=== PATIENT | male | born 1960 | race African-American/Black ===

== ENCOUNTER 2017-08-22 11:45 | Inpatient (IN) | payer SELFPAY ==
[~2017-08-22] VITALS: Ht 175.3 cm; Wt 66.7 kg
[2017-08-22] VITALS (15 sets, daily range): BP systolic 101–147; BP diastolic 66–95
[2017-08-22] MEDS ORDERED: SODIUM CHLORIDE 0.9% 1,000 ML IV ONE ×2 (12:01→13:19)
[2017-08-22 12:44] LABS: BG BASE EXCESS -4.5 mmol/L (-2.0-2.0); BG CARBOXYHEMOGLOBIN 0.6 % (0.5-1.5); BG DEOXYHEMOGLOBIN 3.8 % (0.0-5.0); BG HCO3 ACT 21.8 mmol/L (22.0-26.0); BG METHEMOGLOBIN 0.4 % (0.0-1.5); BG OXYGEN SATURATION 96.2 % (92.0-98.5); BG OXYHEMOGLOBIN 95.2 % (94.0-97.0); BG PCO2 44.3 mmHg (35.0-45.0); BG PH 7.309 (7.350-7.450); BG PO2 93.2 mmHg (75.0-100.0); BG SAMPLE SITE RIGHT BRACHIAL; BG TOTAL HEMOGLOBIN 15.2 g/dL (12.0-18.0); BG VENT MODE ROOM AIR
[2017-08-22 13:00] LABS: BASOPHILS % 0.3 % (0.0-2.0); HEMATOCRIT. 50.2 % (42.0-52.0); HEMOGLOBIN. 15.3 g/dL (14.0-18.0); LYMPHOCYTES % 11.2 % (20.0-50.0); MEAN CORPUSCULAR HEMOGLOBIN 29.3 pg (28.0-32.0); MEAN CORPUSCULAR VOLUME 96.1 fL (80.0-94.0); MEAN PLATELET VOLUME 11.2 fl (7.4-10.4); MONOCYTES % 11.2 % (2.0-8.0); NEUTROPHILS % 77.3 % (40.0-76.0); PLATELET 217 x1000/uL (130-400); RED BLOOD CELL COUNT 5.23 mill/uL (4.7-6.1); RED CELL DISTRIBUTION WIDTH 13.9 % (11.6-14.6)
[2017-08-22 13:04] LABS: PROTHROMBIN TIME 10.7 sec (9.4-11.6)
[2017-08-22 13:14] LABS: CARBON DIOXIDE 26 mEq/L (21-32); CHLORIDE 99 mEq/L (98-107); ETHANOL BLOOD < 10 mg/dL; TROPONIN I 0.06 ng/mL (0.00-0.04)
[2017-08-22 13:17] LABS: BETA HYDROXYBUTYRATE 9.3 mMol/L (0.0-0.3)
[2017-08-22] MEDS ORDERED: INSULIN REGULAR (DRIP) 100 UNITS in SODIUM CHLORIDE 0.9% 99 ML IV SCH (13:30)
[2017-08-22] MEDS ORDERED: SODIUM CHLORIDE 0.9% 1,000 ML IV SCH (13:39)
[2017-08-22] MEDS: SODIUM CHLORIDE 0.45% 1,000 ML IV SCH ×2 (17:22→20:59)
[2017-08-22] MEDS ORDERED: DEXTROSE 50% WATER 50ML SYRINGE IV PRN ×4 (18:00→18:15)
[2017-08-22] MEDS ORDERED: BLOOD SUGAR DIAGNOSTIC STRIP TEST SCH (18:00)
[2017-08-22] MEDS ORDERED: HYDROCODONE/ACETAMINOPHEN 5/325MG TABLET PO PRN (18:15)
[2017-08-22] MEDS ORDERED: ONDANSETRON HCL 4MG/2ML VIAL IV PRN (18:15)
[2017-08-22] MEDS ORDERED: ACETAMINOPHEN 650MG/20.3ML UDC GT PRN (18:15)
[2017-08-22] MEDS ORDERED: ACETAMINOPHEN 325MG TABLET PO PRN (18:15)
[2017-08-22] MEDS ORDERED: MAGNESIUM/ALUMINUM HYDROXIDE/SIMETHICONE 30ML UDC PO PRN (18:15)
[2017-08-22] MEDS ORDERED: IPRATROPIUM/ALBUTEROL 0.5-3(2.5)MG/3ML NEB INH PRN (18:15)
[2017-08-22] MEDS ORDERED: CLONIDINE 0.1MG TABLET PO PRN (18:15)
[2017-08-22] MEDS ORDERED: ACETAMINOPHEN 650MG SUPP PR PRN (18:15)
[2017-08-22] MEDS ORDERED: GUAIFENESIN 200MG/10ML SUGAR FREE UDC PO PRN (18:15)
[2017-08-22] MEDS: BLOOD SUGAR DIAGNOSTIC STRIP TEST SCH ×6 (19:00→22:58)
[2017-08-22 19:17] LABS: CLARITY URINE CLEAR (CLEAR); COLOR URINE YELLOW (YELLOW); KETONES URINE 1+ (NEGATIVE); LEUKOCYTE ESTERASE URINE NEGATIVE (NEGATIVE); NITRITE URINE NEGATIVE (NEGATIVE); OCCULT BLOOD URINE TRACE (NEGATIVE); PROTEIN URINE TRACE (NEGATIVE); SPECIFIC GRAVITY URINE 1.028 (1.005-1.030); UROBILINOGEN URINE 0.2 E.U./dL (0.2-1.0)
[2017-08-22 19:26] LABS: *AMPHETAMINES SCREEN URINE NEGATIVE (NEGATIVE); *BARBITURATES SCREEN URINE NEGATIVE (NEGATIVE); *BENZODIAZEPINES SCREEN URINE NEGATIVE (NEGATIVE); *COCAINE SCREEN URINE NEGATIVE (NEGATIVE); CANNABINOID URINE SCREEN NEGATIVE (NEGATIVE); METHADONE URINE SCREEN NEGATIVE (NEGATIVE); OPIATES URINE SCREEN NEGATIVE (NEGATIVE); PHENCYCLIDINE URINE SCREEN NEGATIVE (NEGATIVE)
[2017-08-22] MEDS: ENOXAPARIN 30MG/0.3ML SYR SUBCUT SCH (19:37)
[2017-08-22] MEDS: INSULIN REGULAR (DRIP) 100 UNITS in SODIUM CHLORIDE 0.9% 100 ML IV SCH (21:15)
[2017-08-22] MEDS: SODIUM CHLORIDE 0.9% INJ 3ML FLUSH IVF SCH (21:23)
[2017-08-22 22:10] LABS: TROPONIN I 0.07 ng/mL (0.00-0.04)
[2017-08-22 22:11] LABS: CREATINE KINASE MB FRACTION 0.8 ng/mL (0.5-3.6)
[2017-08-23] VITALS (24 sets, daily range): BP systolic 89–139; BP diastolic 64–89
[2017-08-23] MEDS: BLOOD SUGAR DIAGNOSTIC STRIP TEST SCH ×24 (00:20→23:19)
[2017-08-23] MEDS: INSULIN REGULAR (DRIP) 100 UNITS in SODIUM CHLORIDE 0.9% 100 ML IV SCH ×3 (01:11→19:40)
[2017-08-23] MEDS: SODIUM CHLORIDE 0.45% 1,000 ML IV SCH (04:04)
[2017-08-23] MEDS: SODIUM CHLORIDE 0.9% INJ 3ML FLUSH IVF SCH ×3 (05:07→21:10)
[2017-08-23 05:20] LABS: BASOPHILS % 0.2 % (0.0-2.0); HEMATOCRIT. 46.6 % (42.0-52.0); MEAN CORPUSCULAR VOLUME 89.8 fL (80.0-94.0); MEAN PLATELET VOLUME 10.4 fl (7.4-10.4); MONOCYTES % 12.9 % (2.0-8.0); NEUTROPHILS % 71.9 % (40.0-76.0); PLATELET 217 x1000/uL (130-400); RED BLOOD CELL COUNT 5.18 mill/uL (4.7-6.1); RED CELL DISTRIBUTION WIDTH 13.3 % (11.6-14.6)
[2017-08-23 05:45] LABS: CARBON DIOXIDE 37 mEq/L (21-32); CHLORIDE 118 mEq/L (98-107); CREATINE KINASE 201 IU/L (39-308); CREATINE KINASE MB FRACTION 0.7 ng/mL (0.5-3.6); PHOSPHORUS 1.7 mg/dL (2.5-4.9); TROPONIN I 0.07 ng/mL (0.00-0.04)
[2017-08-23] MEDS ORDERED: DEXT 5%/0.45% NACL 1000ML 1,000 ML IV SCH (06:30)
[2017-08-23] MEDS: DEXT 5%/0.2% NACL 1,000 ML IV SCH ×3 (10:23→21:09)
[2017-08-23] MEDS ORDERED: POTASSIUM CHLORIDE INJ 40 MEQ in DEXT 5% WATER 500 ML IV NR (11:30)
[2017-08-23] MEDS: TAMSULOSIN HCL 0.4MG SR CAPSULE PO SCH (15:37)
[2017-08-23] MEDS: DOCUSATE SODIUM 100MG CAPSULE PO PRN (15:38)
[2017-08-23] MEDS: ENOXAPARIN 30MG/0.3ML SYR SUBCUT SCH (18:28)
[2017-08-23] MEDS ORDERED: POTASSIUM CHLORIDE 20MEQ TABLET SR PO NR (18:30)
[2017-08-23] MEDS ORDERED: POTASSIUM CHLORIDE INJ 40 MEQ in DEXT 5% WATER 250 ML IV NR (20:00)
[2017-08-24] VITALS (26 sets, daily range): BP systolic 88–151; BP diastolic 67–101
[2017-08-24] MEDS: BLOOD SUGAR DIAGNOSTIC STRIP TEST SCH ×15 (00:15→21:36)
[2017-08-24] MEDS ORDERED: LIDOCAINE HCL/PF 1% 2ML VIAL ONE (05:00)
[2017-08-24] MEDS: SODIUM CHLORIDE 0.9% INJ 3ML FLUSH IVF SCH ×3 (05:25→21:37)
[2017-08-24] MEDS: DEXT 5%/0.2% NACL 1,000 ML IV SCH (05:25)
[2017-08-24 05:29] LABS: BASOPHILS % 0.2 % (0.0-2.0); EOSINOPHILS % 0.1 % (0.0-5.0); HEMATOCRIT. 39.4 % (42.0-52.0); HEMOGLOBIN. 12.6 g/dL (14.0-18.0); LYMPHOCYTES % 11.2 % (20.0-50.0); MEAN CORPUSCULAR HEMOGLOBIN 29.1 pg (28.0-32.0); MEAN CORPUSCULAR VOLUME 90.7 fL (80.0-94.0); MEAN PLATELET VOLUME 10.8 fl (7.4-10.4); MONOCYTES % 6.6 % (2.0-8.0); NEUTROPHILS % 81.9 % (40.0-76.0); PLATELET 169 x1000/uL (130-400); RED BLOOD CELL COUNT 4.35 mill/uL (4.7-6.1); RED CELL DISTRIBUTION WIDTH 13.3 % (11.6-14.6)
[2017-08-24 06:17] LABS: PHOSPHORUS 0.4 mg/dL (2.5-4.9)
[2017-08-24 08:13] LABS: BG BASE EXCESS 7.8 mmol/L (-2.0-2.0); BG CARBOXYHEMOGLOBIN 0.9 % (0.5-1.5); BG DEOXYHEMOGLOBIN 5.5 % (0.0-5.0); BG FRACTION INSPIRED OXYGEN 21; BG HCO3 ACT 31.4 mmol/L (22.0-26.0); BG METHEMOGLOBIN 0.3 % (0.0-1.5); BG OXYGEN SATURATION 94.4 % (92.0-98.5); BG OXYHEMOGLOBIN 93.3 % (94.0-97.0); BG PCO2 40.3 mmHg (35.0-45.0); BG PO2 66.9 mmHg (75.0-100.0); BG SAMPLE SITE RIGHT RADIAL; BG TOTAL HEMOGLOBIN 14.2 g/dL (12.0-18.0); BG VENT MODE ROOM AIR
[2017-08-24] MEDS ORDERED: METRONIDAZOLE 500MG TABLET PO SCH (08:30)
[2017-08-24] MEDS ORDERED: CEFEPIME HCL 1000MG/VIAL INJ IM SCH (09:00)
[2017-08-24] MEDS: TAMSULOSIN HCL 0.4MG SR CAPSULE PO SCH (09:08)
[2017-08-24] MEDS: POTASSIUM CHLORIDE 20MEQ TABLET SR PO SCH (09:08)
[2017-08-24] MEDS: DEXTROSE 5% WATER 1,000 ML IV SCH ×2 (09:28→21:37)
[2017-08-24] MEDS ORDERED: POTASSIUM PHOS,M-BASIC-D-BASIC 15 MMOL in DEXT 5% WATER 245 ML IV SCH (10:00)
[2017-08-24] MEDS: METRONIDAZOLE 500 MG PREMIX 100 ML IV SCH ×2 (10:39→17:38)
[2017-08-24] MEDS: CEFEPIME 1,000 MG in DEXTROSE 5% WATER 50 ML IV SCH ×2 (10:49→21:01)
[2017-08-24] MEDS ORDERED: DEXTROSE 50% WATER 50ML SYRINGE IV PRN (11:30)
[2017-08-24] MEDS: INSULIN LISPRO 100 UNITS/ML SUBCUT SCH ×4 (11:31→21:35)
[2017-08-24] MEDS: AMLODIPINE 5MG TABLET PO SCH (13:00)
[2017-08-24] MEDS ORDERED: POTASSIUM PHOS,M-BASIC-D-BASIC 30 MMOL in DEXT 5% WATER 500 ML IV SCH (14:00)
[2017-08-24] MEDS: ENOXAPARIN 40MG/0.4ML SYR SUBCUT SCH (17:39)
[2017-08-24] MEDS ORDERED: INSULIN GLARGINE UD 100 UNITS/ML SYR SUBCUT SCH (22:00)
[2017-08-25] VITALS (31 sets, daily range): BP systolic 99–149; BP diastolic 63–102
[2017-08-25] MEDS: METRONIDAZOLE 500 MG PREMIX 100 ML IV SCH ×3 (02:21→17:17)
[2017-08-25] MEDS: ALBUTEROL (0.083%) 2.5MG/3ML NEB HHN SCH ×4 (03:27→20:15)
[2017-08-25 05:31] LABS: BASOPHILS % 0.3 % (0.0-2.0); EOSINOPHILS % 0.7 % (0.0-5.0); HEMATOCRIT. 38.2 % (42.0-52.0); LYMPHOCYTES % 19.6 % (20.0-50.0); MEAN CORPUSCULAR VOLUME 92.1 fL (80.0-94.0); MEAN PLATELET VOLUME 10.9 fl (7.4-10.4); MONOCYTES % 7.2 % (2.0-8.0); NEUTROPHILS % 72.2 % (40.0-76.0); PLATELET 149 x1000/uL (130-400); RED BLOOD CELL COUNT 4.15 mill/uL (4.7-6.1); RED CELL DISTRIBUTION WIDTH 13.4 % (11.6-14.6)
[2017-08-25 05:48] LABS: CARBON DIOXIDE 29 mEq/L (21-32); CHLORIDE 114 mEq/L (98-107); PHOSPHORUS 2.4 mg/dL (2.5-4.9)
[2017-08-25] MEDS: SODIUM CHLORIDE 0.9% INJ 3ML FLUSH IVF SCH ×3 (06:43→21:19)
[2017-08-25] MEDS: BLOOD SUGAR DIAGNOSTIC STRIP TEST SCH ×4 (06:43→21:19)
[2017-08-25] MEDS: INSULIN LISPRO 100 UNITS/ML SUBCUT SCH ×4 (06:43→21:19)
[2017-08-25] MEDS: TAMSULOSIN HCL 0.4MG SR CAPSULE PO SCH (09:00)
[2017-08-25] MEDS: AMLODIPINE 5MG TABLET PO SCH (09:00)
[2017-08-25] MEDS: CEFEPIME 1,000 MG in DEXTROSE 5% WATER 50 ML IV SCH ×2 (09:11→21:12)
[2017-08-25] MEDS: POTASSIUM CHLORIDE 20MEQ TABLET SR PO SCH (09:11)
[2017-08-25 10:06] LABS: A/G RATIO 0.9 (0.7-1.7); ALBUMIN 3.5 g/dL (2.9-4.4); ALPHA-1-GLOBULIN 0.2 g/dL (0.0-0.4); ALPHA-2-GLOBULIN 1.1 g/dL (0.4-1.0); BETA GLOBULIN 1.3 g/dL (0.7-1.3); GAMMA GLOBULINS 1.4 g/dL (0.4-1.8); GLOBULIN TOTAL 4.1 g/dL (2.2-3.9); M-SPIKE Not Observed g/dL (Not Observed); TOTAL PROTEIN SERUM 7.6 g/dL (6.0-8.5)
[2017-08-25] MEDS ORDERED: POTASSIUM PHOS,M-BASIC-D-BASIC 15 MMOL in DEXT 5% WATER 245 ML IV NR (10:30)
[2017-08-25] MEDS: INSULIN GLARGINE UD 100 UNITS/ML SYR SUBCUT SCH ×2 (10:36→21:18)
[2017-08-25] MEDS ORDERED: INSULIN LISPRO 100 UNITS/ML SUBCUT NR (12:15)
[2017-08-25] MEDS: DEXTROSE 5% WATER 1,000 ML IV SCH (12:16)
[2017-08-25] MEDS: ENOXAPARIN 40MG/0.4ML SYR SUBCUT SCH (17:17)
[2017-08-26] VITALS (7 sets, daily range): BP systolic 118–148; BP diastolic 81–93
[2017-08-26] MEDS: ALBUTEROL (0.083%) 2.5MG/3ML NEB HHN SCH ×4 (01:20→20:33)
[2017-08-26] MEDS: DEXTROSE 5% WATER 1,000 ML IV SCH ×2 (01:23→12:46)
[2017-08-26] MEDS: METRONIDAZOLE 500 MG PREMIX 100 ML IV SCH ×2 (02:48→10:50)
[2017-08-26 06:10] LABS: ALBUMIN URINE 55.1 % (.); ALPHA-1-GLOBULIN URINE 1.1 % (.); ALPHA-2-GLOBULIN URINE 7.6 % (.); GAMMA GLOBULIN URINE 22.2 % (.); TOTAL PROTEIN RANDOM URINE 31.5 mg/dL (Not Estab.)
[2017-08-26] MEDS: BLOOD SUGAR DIAGNOSTIC STRIP TEST SCH ×4 (06:19→21:36)
[2017-08-26] MEDS: SODIUM CHLORIDE 0.9% INJ 3ML FLUSH IVF SCH ×3 (06:20→22:01)
[2017-08-26 07:26] LABS: HEMATOCRIT. 33.5 % (42.0-52.0); HEMOGLOBIN. 10.9 g/dL (14.0-18.0); MEAN CORPUSCULAR HEMOGLOBIN 29.7 pg (28.0-32.0); MEAN CORPUSCULAR VOLUME 91.3 fL (80.0-94.0); MEAN PLATELET VOLUME 11.4 fl (7.4-10.4); PLATELET 153 x1000/uL (130-400); RED BLOOD CELL COUNT 3.67 mill/uL (4.7-6.1); RED CELL DISTRIBUTION WIDTH 13.4 % (11.6-14.6)
[2017-08-26 07:43] LABS: CARBON DIOXIDE 30 mEq/L (21-32); CHLORIDE 112 mEq/L (98-107); PHOSPHORUS 2.3 mg/dL (2.5-4.9)
[2017-08-26] MEDS: INSULIN LISPRO 100 UNITS/ML SUBCUT SCH ×4 (08:50→21:49)
[2017-08-26] MEDS: CEFEPIME 1,000 MG in DEXTROSE 5% WATER 50 ML IV SCH ×2 (09:10→21:36)
[2017-08-26] MEDS: TAMSULOSIN HCL 0.4MG SR CAPSULE PO SCH (09:11)
[2017-08-26] MEDS: DOCUSATE SODIUM 100MG CAPSULE PO PRN (09:11)
[2017-08-26] MEDS: AMLODIPINE 5MG TABLET PO SCH (09:12)
[2017-08-26] MEDS: POTASSIUM CHLORIDE 20MEQ TABLET SR PO SCH (09:12)
[2017-08-26 10:28] LABS: PLATELET ESTIMATE NORMAL
[2017-08-26] MEDS: INSULIN GLARGINE UD 100 UNITS/ML SYR SUBCUT SCH (10:46)
[2017-08-26] MEDS ORDERED: INSLIS SUBCUT (13:14)
[2017-08-26] MEDS ORDERED: LANTUSUD SUBCUT (13:14)
[2017-08-26] MEDS ORDERED: AMLO5TAB88 PO (13:14)
[2017-08-26] MEDS ORDERED: LEVOFLOXACIN 500MG TABLET PO SCH (13:30)
[2017-08-26] MEDS ORDERED: CLONIDINE HCL 0.2MG/24HR PATCH TD SCH (16:00)
[2017-08-26] MEDS ORDERED: POTASSIUM PHOS,M-BASIC-D-BASIC 15 MMOL in DEXT 5% WATER 245 ML IV NR (16:00)
[2017-08-26] MEDS: ENOXAPARIN 40MG/0.4ML SYR SUBCUT SCH (19:00)
[2017-08-26] MEDS ORDERED: METRONIDAZOLE 500MG TABLET PO SCH (20:00)
[2017-08-26] MEDS ORDERED: INSULIN GLARGINE UD 100 UNITS/ML SYR SUBCUT SCH (22:00)
== END 2017-08-27 00:15 | disposition home or self-care (01) | DRG 469 ==
LOC: ER 11:45 → MICUSO 13:40 → ENRESERV 13:54 → 6EST 08-25 23:41
PROVIDERS: ADMIT Family Medicine; ATTEND Family Medicine
DX: N17.0 Acute kidney failure with tubular necrosis (principal); E11.00 Type 2 diabetes mellitus with hyperosmolarity without nonketotic hyperglycemic-hyperosmolar coma (NKHHC); G93.40 Encephalopathy, unspecified; K85.90 Acute pancreatitis without necrosis or infection, unspecified; J18.9 Pneumonia, unspecified organism; E11.10 Type 2 diabetes mellitus with ketoacidosis without coma; E87.0 Hyperosmolality and hypernatremia; I10 Essential (primary) hypertension; Z79.4 Long term (current) use of insulin; Z83.3 Family history of diabetes mellitus; Z82.49 Family history of ischemic heart disease and other diseases of the circulatory system; E83.39 Other disorders of phosphorus metabolism; N13.30 Unspecified hydronephrosis; E86.0 Dehydration
CPT/HCPCS: 36415; 36600; 70450; 71045; 76770; 80048; 80053; 80061; 80305; 81001; 82010; 82375; 82550; 82553; 82570; 82805; 82947; 82962; 83036; 83690; 83735; 83935; 84100; 84155; 84156; 84165; 84166; 84300; 84484; 85025; 85610; 87040; 87086; 92610; 93005; 94640; 97116; 97162; 99291; G0482; J0692; J1650; J1815; J3480; J3490; J7030; J7050; J7060; J7070; J7611; J7620; A4315

== ENCOUNTER 2017-09-17 12:29 | Emergency (ER) | payer SELFPAY ==
[~2017-09-17] VITALS: Ht 177.8 cm; Wt 67.0 kg
[~2017-09-17 12:29] MED LIST: AMLO5TAB88 PO; INSLIS SUBCUT; LANTUSUD SUBCUT
[2017-09-17 15:45] VITALS: BP 159/88
== END 2017-09-17 16:06 | disposition home or self-care (01) ==
LOC: ER 13:40
DX: Z46.89 Encounter for fitting and adjustment of other specified devices (principal); E11.9 Type 2 diabetes mellitus without complications; I10 Essential (primary) hypertension; Z79.4 Long term (current) use of insulin
CPT/HCPCS: 99281

== ENCOUNTER 2024-08-16 09:21 | Inpatient (IN) | payer OTHER, MEDICAID ==
[~2024-08-16] VITALS: Ht 172.7 cm; Wt 86.2 kg
[~2024-08-16 09:21] MED LIST changes: +ASPI-1406 MT; +ATOR20TA PO; +GABA-529 PO; +HYDR-4009 MT; +HYDR25TA78 PO; +SULF1TAB47 MT
[2024-08-16] MEDS ORDERED: CEFEPIME 1GM IN DEXT 5% 50ML IV ONE (09:30)
[2024-08-16] MEDS: SODIUM CHLORIDE 0.9% (SEPSIS BOLUS) IV ONE (09:56)
[2024-08-16] MEDS: CEFEPIME 1GM/50ML 50 ML IV NR (10:31)
[2024-08-16 10:39] LABS: INR 1.1; PROTHROMBIN TIME 12.3 sec (9.6-11.0)
[2024-08-16 10:43] LABS: CHLORIDE 104 mEq/L (98-107); POTASSIUM 3.8 mEq/L (3.5-5.1); SODIUM 137 mEq/L (136-145)
[2024-08-16 10:44] LABS: CALCIUM 8.2 mg/dL (8.7-10.4); CARBON DIOXIDE 13 mEq/L (21-32)
[2024-08-16 10:49] LABS: GLUCOSE 158 mg/dL (70-105)
[2024-08-16 10:51] LABS: ALANINE AMINOTRANSFERASE 40 IU/L (10-49); ALBUMIN 3.5 g/dL (3.2-4.8); ASPARTATE AMINOTRANSFERASE 57 IU/L (<34); BILIRUBIN TOTAL < 0.2 mg/dL (0.1-1.0); PROTEIN TOTAL 6.5 g/dL (6.0-8.3)
[2024-08-16 10:54] LABS: BILIRUBIN DIRECT < 0.1 mg/dL (<=3.0); CREATININE 9.5 mg/dL (0.6-1.3); ETHANOL BLOOD < 10 mg/dL (<10); TROPONIN I HIGH SENSITIVITY 196 ng/L (3.0-53); UREA NITROGEN BLOOD 117 mg/dL (9-23)
[2024-08-16 11:20] LABS: MEAN CORPUSCULAR HEMOGLOBIN 25.8 pg (28.0-32.0); MEAN CORPUSCULAR HGB CONC 31.9 g/dL (31.0-37.0); MEAN CORPUSCULAR VOLUME 80.7 fL (80.0-94.0); MEAN PLATELET VOLUME 8.7 fl (7.4-10.4); PLATELET 572 x1000/uL (130-400); RED CELL DISTRIBUTION WIDTH 20.7 % (11.6-14.6); WHITE BLOOD COUNT 16.4 x1000/uL (4.5-11.0)
[2024-08-16 11:25] LABS: HEMOGLOBIN. 6.2 g/dL (14.0-18.0)
[2024-08-16 11:26] LABS: DIFFERENTIAL COMMENT 1; HEMATOCRIT. 19.3 % (42.0-52.0)
[2024-08-16] MEDS: NOREPINEPHRINE 8MG/250ML PMX 250 ML IV PRN (11:27)
[2024-08-16] MEDS: VANCOMYCIN 1G PREMIX 200 ML IV SCH (12:08)
[2024-08-16] MEDS ORDERED: IPRATROPIUM/ALBUTEROL 0.5-3(2.5)MG/3ML NEB HHN PRN (17:30)
[2024-08-16] MEDS ORDERED: DEXTROSE 50% WATER 50ML SYRINGE IV PRN (17:30)
[2024-08-16] MEDS ORDERED: LACTATED RINGERS 1,000 ML IV SCH (18:00)
[2024-08-16 18:49] LABS: PLATELET ESTIMATE INCREASED
[2024-08-16] MEDS: PANTOPRAZOLE SODIUM 40 MG/VIAL IV SCH (19:09)
[2024-08-16] MEDS: SODIUM CHLORIDE 0.9% 1,000 ML IV SCH (19:10)
[2024-08-16] MEDS: PIPERACILLIN/TAZO 3.375G/50ML 50 ML IV SCH (19:10)
[2024-08-16] MEDS: INSULIN LISPRO 100 UNITS/ML SUBCUT SCH (19:28)
[2024-08-16 19:47] LABS: TRIGLYCERIDE 73 mg/dL (0-150)
[2024-08-16 19:48] LABS: CREATINE KINASE MB FRACTION 9.1 ng/mL (0.5-3.6); LDL CHOLESTEROL 68 mg/dL (5-100)
[2024-08-16 19:49] LABS: CHOLESTEROL 121 mg/dL (<200); HDL CHOLESTEROL < 20 mg/dL (>55); PHOSPHORUS 6.4 mg/dL (2.5-4.9)
[2024-08-16 20:36] LABS: TROPONIN I HIGH SENSITIVITY 225 ng/L (3.0-53)
[2024-08-16] MEDS: BLOOD SUGAR DIAGNOSTIC STRIP TEST SCH (21:00)
[2024-08-17] VITALS (9 sets, daily range): BP systolic 130–150; BP diastolic 50–78; PULSE 54–60; RESP 14–32; TEMP 36.44736–36.55848; O2SAT 100
[2024-08-17 01:23] LABS: HEMOGLOBIN 6.7 g/dL (14.0-18.0)
[2024-08-17 01:24] LABS: HEMATOCRIT 20.9 % (42.0-52.0)
[2024-08-17 10:20] LABS: CHLORIDE 106 mEq/L (98-107); POTASSIUM 3.6 mEq/L (3.5-5.1); SODIUM 138 mEq/L (136-145)
[2024-08-17 10:21] LABS: CALCIUM 7.6 mg/dL (8.7-10.4); CARBON DIOXIDE 11 mEq/L (21-32)
[2024-08-17 10:26] LABS: LACTATE DEHYDROGENASE 405 IU/L (120-246)
[2024-08-17 10:31] LABS: MEAN CORPUSCULAR HEMOGLOBIN 25.1 pg (28.0-32.0); MEAN CORPUSCULAR HGB CONC 30.6 g/dL (31.0-37.0); MEAN CORPUSCULAR VOLUME 81.9 fL (80.0-94.0); MEAN PLATELET VOLUME 8.5 fl (7.4-10.4); PLATELET 589 x1000/uL (130-400); RED CELL DISTRIBUTION WIDTH 20.5 % (11.6-14.6); WHITE BLOOD COUNT 28.9 x1000/uL (4.5-11.0)
[2024-08-17 10:39] LABS: DIFFERENTIAL COMMENT 1; HEMATOCRIT. 20.5 % (42.0-52.0); HEMOGLOBIN. 6.3 g/dL (14.0-18.0)
[2024-08-17 10:53] LABS: GLUCOSE 135 mg/dL (70-105)
[2024-08-17 10:54] LABS: UREA NITROGEN BLOOD 126 mg/dL (9-23)
[2024-08-17 10:55] LABS: ALBUMIN 3.4 g/dL (3.2-4.8); CREATININE 10.5 mg/dL (0.6-1.3); PROTEIN TOTAL 6.6 g/dL (6.0-8.3)
[2024-08-17 10:56] LABS: PHOSPHORUS 8.1 mg/dL (2.5-4.9)
[2024-08-17 10:57] LABS: ALANINE AMINOTRANSFERASE 183 IU/L (10-49); ASPARTATE AMINOTRANSFERASE 310 IU/L (<34); BILIRUBIN TOTAL 0.2 mg/dL (0.1-1.0)
[2024-08-17 11:36] LABS: BG BASE EXCESS -18.6 mmol/L (-2.0-3.0); BG CARBOXYHEMOGLOBIN 2.4 % (0.5-1.5); BG DEOXYHEMOGLOBIN 9.2 % (0.0-5.0); BG FRACTION INSPIRED OXYGEN 21; BG HCO3 ACT 9.2 mmol/L (21.0-28.0); BG METHEMOGLOBIN 0.2 % (0.5-1.5); BG OXYGEN SATURATION 90.6 % (94.0-98.0); BG OXYHEMOGLOBIN 88.2 % (94.0-98.0); BG PCO2 29.7 mmHg (35.0-48.0); BG PO2 69.7 mmHg (83.0-108.0); BG SAMPLE SITE LEFT BRACHIAL; BG TOTAL HEMOGLOBIN 6.1 g/dL (13.5-17.5); BG VENT MODE ROOM AIR
[2024-08-17 12:12] LABS: ANISOCYTOSIS 2+; MICROCYTOSIS 1+; NUCLEATED RED BLOOD CELLS 1 /100 WBC; PLATELET ESTIMATE INCREASED
[2024-08-17 13:13] LABS: HEPATITIS B SURFACE ANTIGEN NEGATIVE (Negative)
[2024-08-17] MEDS: VANCOMYCIN 1G PREMIX 200 ML IV SCH (13:29)
[2024-08-17 13:34] LABS: HEPATITIS A AB IGM NEGATIVE (Negative)
[2024-08-17 13:35] LABS: HEPATITIS B CORE AB IGM NEGATIVE (Negative); HEPATITIS C AB NON REACTIVE (Neg) (Negative)
[2024-08-17] MEDS: SODIUM BICARBONATE 8.4% 50MEQ/50ML SYR IV NR (16:15)
[2024-08-17] MEDS: LIDOCAINE HCL 1% 10 MG/ML 10ML VIAL ONE (19:45)
[2024-08-17] MEDS: EPOETIN ALFA-EPBX 4,000 UNIT/ML VIAL SUBCUT SCH (22:55)
[2024-08-18] VITALS (28 sets, daily range): BP systolic 108–159; BP diastolic 54–96; PULSE 58–71; RESP 10–22; TEMP 36.114–36.9474; O2SAT 60–99
[2024-08-18 01:15] LABS: HEMATOCRIT. 25.1 % (42.0-52.0); HEMOGLOBIN. 8.3 g/dL (14.0-18.0); MEAN CORPUSCULAR HEMOGLOBIN 26.8 pg (28.0-32.0); MEAN CORPUSCULAR VOLUME 81.1 fL (80.0-94.0); MEAN PLATELET VOLUME 8.4 fl (7.4-10.4); PLATELET 496 x1000/uL (130-400); RED BLOOD CELL COUNT 3.09 mill/uL (4.7-6.1); RED CELL DISTRIBUTION WIDTH 20.5 % (11.6-14.6); WHITE BLOOD COUNT 23.7 x1000/uL (4.5-11.0)
[2024-08-18 01:19] LABS: CHLORIDE 108 mEq/L (98-107); POTASSIUM 3.2 mEq/L (3.5-5.1); SODIUM 141 mEq/L (136-145)
[2024-08-18 01:20] LABS: CALCIUM 7.7 mg/dL (8.7-10.4); CARBON DIOXIDE 13 mEq/L (21-32)
[2024-08-18 01:25] LABS: GLUCOSE 137 mg/dL (70-105)
[2024-08-18 01:27] LABS: UREA NITROGEN BLOOD 105 mg/dL (9-23)
[2024-08-18 02:29] LABS: DIFFERENTIAL COMMENT 1
[2024-08-18 03:47] LABS: ANISOCYTOSIS 2+; PLATELET ESTIMATE INCREASED
[2024-08-18 03:49] LABS: HYPOCHROMASIA 1+
[2024-08-18 06:51] LABS: BG BASE EXCESS -12.1 mmol/L (-2.0-3.0); BG CARBOXYHEMOGLOBIN 1.1 % (0.5-1.5); BG DEOXYHEMOGLOBIN 1.2 % (0.0-5.0); BG HCO3 ACT 13.2 mmol/L (21.0-28.0); BG METHEMOGLOBIN 0.3 % (0.5-1.5); BG OXYGEN SATURATION 98.8 % (94.0-98.0); BG OXYHEMOGLOBIN 97.4 % (94.0-98.0); BG PCO2 28.4 mmHg (35.0-48.0); BG PH 7.284 (7.350-7.450); BG PO2 201.4 mmHg (83.0-108.0); BG SAMPLE SITE RIGHT RADIAL; BG TOTAL HEMOGLOBIN 11.1 g/dL (13.5-17.5)
[2024-08-18 07:06] LABS: CALCIUM 7.6 mg/dL (8.7-10.4); CHLORIDE 109 mEq/L (98-107); POTASSIUM 3.2 mEq/L (3.5-5.1); SODIUM 141 mEq/L (136-145)
[2024-08-18 07:07] LABS: CARBON DIOXIDE 13 mEq/L (21-32)
[2024-08-18 07:12] LABS: GLUCOSE 140 mg/dL (70-105)
[2024-08-18 07:13] LABS: CREATINE KINASE 839 IU/L (46-171)
[2024-08-18 07:14] LABS: PHOSPHORUS 6.4 mg/dL (2.5-4.9)
[2024-08-18 07:28] LABS: CREATININE 9.5 mg/dL (0.6-1.3); UREA NITROGEN BLOOD 107 mg/dL (9-23)
[2024-08-18 07:56] LABS: HEMATOCRIT. 24.9 % (42.0-52.0); HEMOGLOBIN. 8.1 g/dL (14.0-18.0); MEAN CORPUSCULAR HEMOGLOBIN 26.8 pg (28.0-32.0); MEAN CORPUSCULAR HGB CONC 32.6 g/dL (31.0-37.0); MEAN CORPUSCULAR VOLUME 82.3 fL (80.0-94.0); MEAN PLATELET VOLUME 8.4 fl (7.4-10.4); PLATELET 489 x1000/uL (130-400); RED BLOOD CELL COUNT 3.02 mill/uL (4.7-6.1); RED CELL DISTRIBUTION WIDTH 20.6 % (11.6-14.6); WHITE BLOOD COUNT 24.7 x1000/uL (4.5-11.0)
[2024-08-18 08:02] LABS: DIFFERENTIAL COMMENT 1
[2024-08-18] MEDS: SODIUM BICARBONATE 8.4% 50MEQ/50ML SYR IV NR (09:12)
[2024-08-18] MEDS ORDERED: NALOXONE HCL 0.4MG/ML VIAL IV PRN (11:00)
[2024-08-18] MEDS: SODIUM BICARBONATE 8.4% 50MEQ/50ML SYR IV SCH (11:26)
[2024-08-18] MEDS: HYDROCODONE/ACETAMINOPHEN 5/325MG TABLET PO PRN (11:26)
[2024-08-18] MEDS: FUROSEMIDE 100MG/10ML VIAL IVP SCH (11:26)
[2024-08-18 11:42] LABS: ANISOCYTOSIS 2+; PLATELET ESTIMATE SLIGHTLY INCREASED
[2024-08-19] VITALS (11 sets, daily range): BP systolic 130–152; BP diastolic 69–91; PULSE 55–66; RESP 18–20; TEMP 36.50292–36.83628; O2SAT 95–100
[2024-08-19 12:41] LABS: HEMATOCRIT. 22.9 % (42.0-52.0); HEMOGLOBIN. 7.8 g/dL (14.0-18.0); MEAN CORPUSCULAR HEMOGLOBIN 26.9 pg (28.0-32.0); MEAN CORPUSCULAR HGB CONC 33.9 g/dL (31.0-37.0); MEAN CORPUSCULAR VOLUME 79.5 fL (80.0-94.0); MEAN PLATELET VOLUME 8.5 fl (7.4-10.4); PLATELET 454 x1000/uL (130-400); RED BLOOD CELL COUNT 2.88 mill/uL (4.7-6.1); RED CELL DISTRIBUTION WIDTH 20.8 % (11.6-14.6)
[2024-08-19 12:47] LABS: DIFFERENTIAL COMMENT 1
[2024-08-19 13:00] LABS: CARBON DIOXIDE 21 mEq/L (21-32); CHLORIDE 107 mEq/L (98-107); SODIUM 142 mEq/L (136-145)
[2024-08-19 13:02] LABS: CALCIUM 7.9 mg/dL (8.7-10.4)
[2024-08-19 13:06] LABS: GLUCOSE 156 mg/dL (70-105); UREA NITROGEN BLOOD 82 mg/dL (9-23)
[2024-08-19 13:09] LABS: PHOSPHORUS 4.3 mg/dL (2.5-4.9)
[2024-08-19 13:38] LABS: CREATININE 7.1 mg/dL (0.6-1.3)
[2024-08-19] MEDS: ACETAMINOPHEN 325MG TABLET PO PRN (16:01)
[2024-08-19] MEDS: VANCOMYCIN 750MG PREMIX 150 ML IV NR (16:02)
[2024-08-20] VITALS: BP 151/57; PULSE 60; RESP 18; TEMP 36.3918; O2SAT 100
[2024-08-20 04:00] VITALS: BP 137/62; PULSE 60; RESP 18; TEMP 36.50292; O2SAT 100
[2024-08-20 07:11] LABS: ANISOCYTOSIS 2+; NUCLEATED RED BLOOD CELLS 3 /100 WBC; PLATELET ESTIMATE INCREASED; TARGET CELLS 2+
[2024-08-20 08:00] VITALS: BP 138/63; PULSE 61; RESP 18; TEMP 36.89184; O2SAT 99
[2024-08-20 12:00] VITALS: BP 123/60; PULSE 60; RESP 18; TEMP 37.28076; O2SAT 96
[2024-08-20 12:00] LABS: MEAN CORPUSCULAR HEMOGLOBIN 26.2 pg (28.0-32.0)
[2024-08-20 12:05] LABS: CHLORIDE 107 mEq/L (98-107); SODIUM 142 mEq/L (136-145)
[2024-08-20 12:06] LABS: CALCIUM 8.9 mg/dL (8.7-10.4); CARBON DIOXIDE 21 mEq/L (21-32)
[2024-08-20 12:11] LABS: GLUCOSE 155 mg/dL (70-105); UREA NITROGEN BLOOD 90 mg/dL (9-23)
[2024-08-20 12:25] LABS: POTASSIUM 2.6 mEq/L (3.5-5.1)
[2024-08-20 12:29] LABS: HEMATOCRIT. 23.2 % (42.0-52.0); HEMOGLOBIN. 7.6 g/dL (14.0-18.0); MEAN CORPUSCULAR HGB CONC 32.7 g/dL (31.0-37.0); MEAN CORPUSCULAR VOLUME 80.1 fL (80.0-94.0); PLATELET 432 x1000/uL (130-400); RED CELL DISTRIBUTION WIDTH 20.2 % (11.6-14.6); WHITE BLOOD COUNT 22.8 x1000/uL (4.5-11.0)
[2024-08-20 12:47] LABS: DIFFERENTIAL COMMENT 1
[2024-08-20 13:27] LABS: ANISOCYTOSIS 2+; MICROCYTOSIS 1+; NUCLEATED RED BLOOD CELLS 6 /100 WBC; PLATELET ESTIMATE INCREASED; TARGET CELLS 2+
[2024-08-20 14:05] LABS: CLARITY URINE CLEAR (CLEAR); COLOR URINE YELLOW (YELLOW); GLUCOSE URINE NEGATIVE (NEGATIVE); KETONES URINE NEGATIVE (NEGATIVE); LEUKOCYTE ESTERASE URINE NEGATIVE (NEGATIVE); NITRITE URINE NEGATIVE (NEGATIVE); OCCULT BLOOD URINE 1+ (NEGATIVE); PH URINE 5.5 (4.5-8.0); PROTEIN URINE 2+ (NEGATIVE); SPECIFIC GRAVITY URINE 1.014 (1.005-1.030); UROBILINOGEN URINE 0.2 E.U./dL (0.2-1.0)
[2024-08-20 14:24] LABS: BACTERIA URINE FEW; RBC URINE 0-2 /hpf (0-2); SQUAMOUS EPITHELIAL CELL URINE FEW /lpf (RARE/1+); YEAST URINE NONE SEEN
[2024-08-20 16:00] VITALS: BP 138/58; PULSE 61; RESP 16; TEMP 36.83628; O2SAT 97
[2024-08-20 16:51] LABS: CREATININE 6.8 mg/dL (0.6-1.3); POTASSIUM 2.5 mEq/L (3.5-5.1)
[2024-08-20] MEDS: POTASSIUM CHLORIDE 20MEQ TABLET SR PO NR (17:39)
[2024-08-20] MEDS: KCL 20MEQ/100ML PREMIX 100 ML IV SCH (18:21)
[2024-08-20 20:00] VITALS: BP 153/73; PULSE 66; RESP 20; TEMP 36.16956; O2SAT 98
[2024-08-21] VITALS (16 sets, daily range): BP systolic 138–189; BP diastolic 60–87; PULSE 59–94; RESP 17–20; TEMP 36.114–37.503; O2SAT 96–99
[2024-08-21 07:37] LABS: CHLORIDE 108 mEq/L (98-107); SODIUM 144 mEq/L (136-145)
[2024-08-21 07:38] LABS: CALCIUM 9.5 mg/dL (8.7-10.4); CARBON DIOXIDE 21 mEq/L (21-32)
[2024-08-21 07:43] LABS: GLUCOSE 156 mg/dL (70-105); UREA NITROGEN BLOOD 84 mg/dL (9-23)
[2024-08-21 07:45] LABS: PHOSPHORUS 4.9 mg/dL (2.5-4.9)
[2024-08-21 08:19] LABS: HEMATOCRIT. 21.4 % (42.0-52.0); HEMOGLOBIN. 7.3 g/dL (14.0-18.0); MEAN CORPUSCULAR VOLUME 79.5 fL (80.0-94.0); MEAN PLATELET VOLUME 8.9 fl (7.4-10.4); PLATELET 383 x1000/uL (130-400); RED BLOOD CELL COUNT 2.69 mill/uL (4.7-6.1); RED CELL DISTRIBUTION WIDTH 20.8 % (11.6-14.6); WHITE BLOOD COUNT 18.7 x1000/uL (4.5-11.0)
[2024-08-21 08:31] LABS: DIFFERENTIAL COMMENT 1
[2024-08-21 08:36] LABS: CREATININE 6.2 mg/dL (0.6-1.3)
[2024-08-21 08:38] LABS: POTASSIUM 2.7 mEq/L (3.5-5.1)
[2024-08-21] MEDS: POTASSIUM CHLORIDE 20MEQ TABLET SR PO NR (09:48)
[2024-08-21] MEDS: MAGNESIUM 1 G PREMIX 100 ML IV NR (12:50)
[2024-08-21 14:26] LABS: CREATINE KINASE 239 IU/L (46-171)
[2024-08-21 14:29] LABS: ANISOCYTOSIS 2+; NUCLEATED RED BLOOD CELLS 1 /100 WBC; PLATELET ESTIMATE NORMAL; TARGET CELLS 1+
[2024-08-21] MEDS: VANCOMYCIN 750MG PMX (XELLIA) 150 ML IV NR (18:18)
[2024-08-22] VITALS: BP 170/74; PULSE 71; RESP 19; TEMP 36.6696; O2SAT 98
[2024-08-22] MEDS: CLONIDINE 0.1MG TABLET PO PRN (00:56)
[2024-08-22 04:00] VITALS: BP 172/75; PULSE 89; RESP 19; TEMP 36.78072; O2SAT 98
[2024-08-22 06:18] LABS: CALCIUM 9.6 mg/dL (8.7-10.4); CARBON DIOXIDE 21 mEq/L (21-32); CHLORIDE 108 mEq/L (98-107); SODIUM 142 mEq/L (136-145)
[2024-08-22 06:19] LABS: HEMATOCRIT. 22.5 % (42.0-52.0); HEMOGLOBIN. 7.7 g/dL (14.0-18.0); MEAN CORPUSCULAR HEMOGLOBIN 27.3 pg (28.0-32.0); MEAN CORPUSCULAR VOLUME 80.1 fL (80.0-94.0); MEAN PLATELET VOLUME 8.9 fl (7.4-10.4); PLATELET 348 x1000/uL (130-400); RED BLOOD CELL COUNT 2.81 mill/uL (4.7-6.1); RED CELL DISTRIBUTION WIDTH 21.3 % (11.6-14.6); WHITE BLOOD COUNT 17.4 x1000/uL (4.5-11.0)
[2024-08-22 06:24] LABS: GLUCOSE 213 mg/dL (70-105); UREA NITROGEN BLOOD 50 mg/dL (9-23)
[2024-08-22 06:26] LABS: PHOSPHORUS 2.9 mg/dL (2.5-4.9)
[2024-08-22 07:01] LABS: POTASSIUM 2.7 mEq/L (3.5-5.1)
[2024-08-22 07:23] LABS: DIFFERENTIAL COMMENT 1
[2024-08-22 08:00] VITALS: BP 184/66; PULSE 106; RESP 17; TEMP 38.11416; O2SAT 92
[2024-08-22] MEDS: POTASSIUM CHLORIDE 20MEQ TABLET SR PO NR (08:56)
[2024-08-22] MEDS: KCL 20MEQ/100ML PREMIX 100 ML IV SCH (11:38)
[2024-08-22 12:00] VITALS: BP 161/67; PULSE 95; RESP 18; TEMP 36.72516; O2SAT 97
[2024-08-22 13:08] LABS: ANISOCYTOSIS 2+; NUCLEATED RED BLOOD CELLS 2 /100 WBC; PLATELET ESTIMATE NORMAL
[2024-08-22 13:09] LABS: MICROCYTOSIS 1+; TARGET CELLS 1+
[2024-08-22 16:00] VITALS: BP 169/74; PULSE 102; RESP 17; TEMP 37.11408; O2SAT 94
[2024-08-22 20:00] VITALS: BP 162/71; PULSE 68; RESP 19; TEMP 36.61404; O2SAT 99
[2024-08-23] VITALS: BP 162/73; PULSE 68; RESP 19; TEMP 36.72516; O2SAT 100
[2024-08-23 04:00] VITALS: BP 173/75; PULSE 69; RESP 19; TEMP 36.72516; O2SAT 98
[2024-08-23 08:00] VITALS: BP_SYST 10; BP_SYST 140; BP_DIAS 62; PULSE 72; RESP 18; TEMP 36.1; TEMP 36.114; O2SAT 94
[2024-08-23 08:33] LABS: HEMATOCRIT. 23.1 % (42.0-52.0); HEMOGLOBIN. 7.6 g/dL (14.0-18.0); MEAN CORPUSCULAR HEMOGLOBIN 26.9 pg (28.0-32.0); MEAN CORPUSCULAR VOLUME 81.4 fL (80.0-94.0); MEAN PLATELET VOLUME 9.3 fl (7.4-10.4); PLATELET 325 x1000/uL (130-400); RED BLOOD CELL COUNT 2.84 mill/uL (4.7-6.1); RED CELL DISTRIBUTION WIDTH 21.2 % (11.6-14.6); WHITE BLOOD COUNT 16.7 x1000/uL (4.5-11.0)
[2024-08-23 08:36] LABS: CHLORIDE 106 mEq/L (98-107); SODIUM 141 mEq/L (136-145)
[2024-08-23 08:37] LABS: CALCIUM 9.6 mg/dL (8.7-10.4); CARBON DIOXIDE 23 mEq/L (21-32)
[2024-08-23 08:42] LABS: CREATININE 3.6 mg/dL (0.6-1.3); GLUCOSE 269 mg/dL (70-105); UREA NITROGEN BLOOD 44 mg/dL (9-23)
[2024-08-23 08:44] LABS: PHOSPHORUS 2.8 mg/dL (2.5-4.9)
[2024-08-23 09:42] LABS: POTASSIUM 2.8 mEq/L (3.5-5.1)
[2024-08-23 09:48] LABS: DIFFERENTIAL COMMENT 1
[2024-08-23] MEDS: POTASSIUM CHLORIDE 20MEQ TABLET SR PO NR ×2 (10:54→14:05)
[2024-08-23 11:37] VITALS: BP 184/78; PULSE 66; RESP 18; TEMP 36.3; O2SAT 96
[2024-08-23] MEDS: AMLODIPINE 10MG TABLET PO SCH (14:06)
[2024-08-23 16:00] VITALS: BP 172/80; PULSE 71; RESP 18; TEMP 36.3; O2SAT 95
[2024-08-23 20:00] VITALS: BP 148/70; PULSE 70; RESP 18; TEMP 36.6; O2SAT 98
[2024-08-23 20:52] LABS: ANISOCYTOSIS 2+; PLATELET ESTIMATE NORMAL
[2024-08-24] VITALS: BP 179/80; PULSE 69; RESP 18; TEMP 36.6; O2SAT 98
[2024-08-24 04:00] VITALS: BP 175/74; PULSE 68; RESP 19; TEMP 36.6; O2SAT 98
[2024-08-24] MEDS: HYDRALAZINE 20MG/ML VIAL IV PRN (04:45)
[2024-08-24 06:56] LABS: HEMOGLOBIN. 8.1 g/dL (14.0-18.0); MEAN CORPUSCULAR HEMOGLOBIN 26.6 pg (28.0-32.0); MEAN CORPUSCULAR HGB CONC 32.4 g/dL (31.0-37.0); MEAN CORPUSCULAR VOLUME 82.2 fL (80.0-94.0); MEAN PLATELET VOLUME 9.2 fl (7.4-10.4); PLATELET 307 x1000/uL (130-400); RED BLOOD CELL COUNT 3.03 mill/uL (4.7-6.1); RED CELL DISTRIBUTION WIDTH 21.6 % (11.6-14.6); WHITE BLOOD COUNT 16.8 x1000/uL (4.5-11.0)
[2024-08-24 07:03] LABS: DIFFERENTIAL COMMENT 1
[2024-08-24 07:10] LABS: CARBON DIOXIDE 21 mEq/L (21-32); CHLORIDE 105 mEq/L (98-107); SODIUM 140 mEq/L (136-145)
[2024-08-24 07:11] LABS: CALCIUM 9.6 mg/dL (8.7-10.4)
[2024-08-24 07:15] LABS: CREATININE 3.1 mg/dL (0.6-1.3); GLUCOSE 292 mg/dL (70-105)
[2024-08-24 07:16] LABS: UREA NITROGEN BLOOD 38 mg/dL (9-23)
[2024-08-24 07:18] LABS: PHOSPHORUS 2.5 mg/dL (2.5-4.9)
[2024-08-24 08:00] VITALS: BP 160/72; PULSE 96; RESP 18; TEMP 36.3; O2SAT 96
[2024-08-24] MEDS: POTASSIUM CHLORIDE 20MEQ TABLET SR PO NR (11:01)
[2024-08-24 12:00] VITALS: BP 154/72; PULSE 77; RESP 18; TEMP 36.7; O2SAT 98
[2024-08-24] MEDS: VANCOMYCIN 750MG PREMIX 150 ML IV NR (13:46)
[2024-08-24 16:00] VITALS: BP 140/62; PULSE 77; RESP 18; TEMP 36.1; O2SAT 96; O2SAT 99
[2024-08-24 20:00] VITALS: BP 190/93; PULSE 112; RESP 20; TEMP 36.5; O2SAT 100
[2024-08-24 23:20] LABS: ANISOCYTOSIS 2+; PLATELET ESTIMATE NORMAL
[2024-08-25] VITALS: BP_SYST 141; BP_SYST 161; BP_DIAS 67; BP_DIAS 75; PULSE 79; RESP 20; TEMP 36.6; O2SAT 99
[2024-08-25] MEDS: LOPERAMIDE HCL 2MG CAPSULE PO PRN (01:59)
[2024-08-25 04:00] VITALS: BP 173/78; PULSE 80; RESP 18; TEMP 36.3; O2SAT 97
[2024-08-25 08:00] VITALS: BP 146/66; PULSE 86; RESP 18; TEMP 36.3; O2SAT 97
[2024-08-25 12:00] VITALS: BP 154/67; PULSE 76; RESP 18; TEMP 36.3; O2SAT 95
[2024-08-25] MEDS ORDERED: INSULIN GLARGINE 100 UNITS/ML SUBCUT NR (13:15)
[2024-08-25 14:36] LABS: CHLORIDE 105 mEq/L (98-107); SODIUM 139 mEq/L (136-145)
[2024-08-25 14:37] LABS: CALCIUM 9.3 mg/dL (8.7-10.4); CARBON DIOXIDE 21 mEq/L (21-32)
[2024-08-25 14:42] LABS: CREATININE 2.7 mg/dL (0.6-1.3); GLUCOSE 298 mg/dL (70-105); UREA NITROGEN BLOOD 31 mg/dL (9-23)
[2024-08-25 14:43] LABS: BASOPHILS % 0.4 % (0.0-2.0); EOSINOPHILS % 2.1 % (0.0-5.0); HEMATOCRIT. 26.9 % (42.0-52.0); HEMOGLOBIN. 8.7 g/dL (14.0-18.0); LYMPHOCYTES % 11.2 % (20.0-50.0); MEAN CORPUSCULAR HEMOGLOBIN 26.4 pg (28.0-32.0); MEAN CORPUSCULAR HGB CONC 32.2 g/dL (31.0-37.0); MEAN PLATELET VOLUME 9.2 fl (7.4-10.4); MONOCYTES % 11.3 % (2.0-8.0); PLATELET 319 x1000/uL (130-400); RED BLOOD CELL COUNT 3.28 mill/uL (4.7-6.1); RED CELL DISTRIBUTION WIDTH 22.1 % (11.6-14.6); WHITE BLOOD COUNT 14.2 x1000/uL (4.5-11.0)
[2024-08-25 14:44] LABS: PHOSPHORUS 2.8 mg/dL (2.5-4.9)
[2024-08-25 14:58] LABS: DIFFERENTIAL COMMENT 1
[2024-08-25 16:00] VITALS: BP 159/75; PULSE 96; RESP 18; TEMP 36.7; O2SAT 96
[2024-08-25 20:00] VITALS: BP 130/65; PULSE 87; RESP 18; TEMP 36.7; O2SAT 96
[2024-08-25] MEDS: GUAIFENESIN-DM 200MG-20MG/10ML UDC PO PRN (22:44)
[2024-08-25] MEDS: INSULIN GLARGINE 100 UNITS/ML SUBCUT SCH (22:48)
[2024-08-26] VITALS: BP 139/70; PULSE 81; RESP 18; TEMP 36.5; O2SAT 97
[2024-08-26 04:00] VITALS: BP 127/70; PULSE 90; RESP 19; TEMP 37.2; O2SAT 95
[2024-08-26 08:00] VITALS: BP 140/68; PULSE 84; RESP 18; TEMP 36.9; O2SAT 100
[2024-08-26] MEDS: FOLIC ACID/VITAMIN B COMP W-C TABLET PO SCH (08:19)
[2024-08-26 08:22] LABS: CARBON DIOXIDE 26 mEq/L (21-32); CHLORIDE 103 mEq/L (98-107); POTASSIUM 3.1 mEq/L (3.5-5.1); SODIUM 138 mEq/L (136-145)
[2024-08-26 08:23] LABS: CALCIUM 9.4 mg/dL (8.7-10.4)
[2024-08-26 08:27] LABS: CREATININE 2.7 mg/dL (0.6-1.3); GLUCOSE 291 mg/dL (70-105)
[2024-08-26 08:28] LABS: UREA NITROGEN BLOOD 29 mg/dL (9-23)
[2024-08-26 08:30] LABS: PHOSPHORUS 2.8 mg/dL (2.5-4.9)
[2024-08-26 08:38] LABS: BASOPHILS % 0.7 % (0.0-2.0); EOSINOPHILS % 2.5 % (0.0-5.0); HEMOGLOBIN. 8.7 g/dL (14.0-18.0); MEAN CORPUSCULAR HEMOGLOBIN 26.9 pg (28.0-32.0); MEAN CORPUSCULAR HGB CONC 32.4 g/dL (31.0-37.0); MEAN CORPUSCULAR VOLUME 83.1 fL (80.0-94.0); MEAN PLATELET VOLUME 9.1 fl (7.4-10.4); NEUTROPHILS % 80.8 % (40.0-76.0); PLATELET 317 x1000/uL (130-400); RED BLOOD CELL COUNT 3.24 mill/uL (4.7-6.1); RED CELL DISTRIBUTION WIDTH 21.9 % (11.6-14.6); WHITE BLOOD COUNT 13.9 x1000/uL (4.5-11.0)
[2024-08-26] MEDS: POTASSIUM CHLORIDE 20MEQ TABLET SR PO NR (11:56)
[2024-08-26 12:00] VITALS: BP 147/71; PULSE 78; RESP 18; TEMP 37; O2SAT 100
[2024-08-26] MEDS: VANCOMYCIN 750MG/150ML (BAXTER) IV SCH (12:46)
[2024-08-26 16:00] VITALS: BP 140/72; PULSE 76; RESP 19; TEMP 36.8; O2SAT 99
[2024-08-26 20:00] VITALS: BP 138/67; PULSE 84; RESP 20; TEMP 36.6; O2SAT 97
[2024-08-26] MEDS: INSULIN GLARGINE 100 UNITS/ML SUBCUT SCH (21:26)
[2024-08-27] VITALS (8 sets, daily range): BP systolic 124–169; BP diastolic 59–85; PULSE 69–90; RESP 18–20; TEMP 36.3–38.2; O2SAT 85–100
[2024-08-27 08:01] LABS: CALCIUM 9.5 mg/dL (8.7-10.4); CARBON DIOXIDE 25 mEq/L (21-32); CHLORIDE 105 mEq/L (98-107); POTASSIUM 3.6 mEq/L (3.5-5.1); SODIUM 139 mEq/L (136-145)
[2024-08-27 08:06] LABS: CREATININE 2.9 mg/dL (0.6-1.3); GLUCOSE 183 mg/dL (70-105)
[2024-08-27 08:07] LABS: UREA NITROGEN BLOOD 27 mg/dL (9-23)
[2024-08-27 08:09] LABS: PHOSPHORUS 2.8 mg/dL (2.5-4.9)
[2024-08-27 08:22] LABS: BASOPHILS % 0.6 % (0.0-2.0); HEMATOCRIT. 26.5 % (42.0-52.0); HEMOGLOBIN. 8.6 g/dL (14.0-18.0); LYMPHOCYTES % 8.3 % (20.0-50.0); MEAN CORPUSCULAR HEMOGLOBIN 26.6 pg (28.0-32.0); MEAN CORPUSCULAR HGB CONC 32.3 g/dL (31.0-37.0); MEAN CORPUSCULAR VOLUME 82.3 fL (80.0-94.0); MEAN PLATELET VOLUME 9.3 fl (7.4-10.4); MONOCYTES % 7.9 % (2.0-8.0); NEUTROPHILS % 80.2 % (40.0-76.0); PLATELET 350 x1000/uL (130-400); RED BLOOD CELL COUNT 3.22 mill/uL (4.7-6.1); RED CELL DISTRIBUTION WIDTH 21.1 % (11.6-14.6)
[2024-08-27] MEDS: MAGNESIUM OXIDE 400MG TABLET PO NR (12:17)
[2024-08-28] VITALS (8 sets, daily range): BP systolic 133–159; BP diastolic 58–73; PULSE 76–90; RESP 18–19; TEMP 36.8–39; O2SAT 95–100
[2024-08-28] MEDS: MAGNESIUM OXIDE 400MG TABLET PO SCH (13:14)
[2024-08-28] MEDS: VANCOMYCIN 750MG PREMIX 150 ML IV NR (16:18)
[2024-08-28] MEDS: ACETAMINOPHEN 325MG TABLET PO PRN (17:43)
[2024-08-28 18:31] LABS: BASOPHILS % 0.7 % (0.0-2.0); EOSINOPHILS % 3.5 % (0.0-5.0); HEMATOCRIT. 25.2 % (42.0-52.0); HEMOGLOBIN. 8.2 g/dL (14.0-18.0); LYMPHOCYTES % 13.7 % (20.0-50.0); MEAN CORPUSCULAR HEMOGLOBIN 26.7 pg (28.0-32.0); MEAN CORPUSCULAR HGB CONC 32.4 g/dL (31.0-37.0); MEAN CORPUSCULAR VOLUME 82.6 fL (80.0-94.0); MEAN PLATELET VOLUME 8.6 fl (7.4-10.4); MONOCYTES % 9.4 % (2.0-8.0); NEUTROPHILS % 72.7 % (40.0-76.0); PLATELET 422 x1000/uL (130-400); RED BLOOD CELL COUNT 3.05 mill/uL (4.7-6.1); RED CELL DISTRIBUTION WIDTH 21.2 % (11.6-14.6); WHITE BLOOD COUNT 9.9 x1000/uL (4.5-11.0)
[2024-08-28 18:42] LABS: CHLORIDE 104 mEq/L (98-107); SODIUM 137 mEq/L (136-145)
[2024-08-28 18:43] LABS: CALCIUM 9.1 mg/dL (8.7-10.4); CARBON DIOXIDE 21 mEq/L (21-32)
[2024-08-28 18:48] LABS: CREATININE 2.6 mg/dL (0.6-1.3); GLUCOSE 141 mg/dL (70-105); UREA NITROGEN BLOOD 23 mg/dL (9-23)
[2024-08-29] VITALS: BP 154/76; PULSE 82; RESP 19; TEMP 36.7; O2SAT 99
[2024-08-29 04:00] VITALS: BP 166/78; PULSE 83; RESP 19; TEMP 36.7; O2SAT 99
[2024-08-29 08:00] VITALS: BP 154/76; PULSE 82; RESP 19; TEMP 36.7; O2SAT 99
[2024-08-29 12:00] VITALS: BP 167/78; PULSE 84; RESP 18; TEMP 37.1; O2SAT 100
[2024-08-29 13:32] LABS: HEMATOCRIT. 24.8 % (42.0-52.0); HEMOGLOBIN. 8.3 g/dL (14.0-18.0); MEAN CORPUSCULAR HEMOGLOBIN 27.2 pg (28.0-32.0); MEAN CORPUSCULAR HGB CONC 33.2 g/dL (31.0-37.0); MEAN CORPUSCULAR VOLUME 81.8 fL (80.0-94.0); MEAN PLATELET VOLUME 8.5 fl (7.4-10.4); PLATELET 483 x1000/uL (130-400); RED BLOOD CELL COUNT 3.04 mill/uL (4.7-6.1); RED CELL DISTRIBUTION WIDTH 20.9 % (11.6-14.6); WHITE BLOOD COUNT 9.1 x1000/uL (4.5-11.0)
[2024-08-29 13:39] LABS: DIFFERENTIAL COMMENT 1
[2024-08-29 13:40] LABS: CHLORIDE 103 mEq/L (98-107)
[2024-08-29 13:41] LABS: CALCIUM 8.9 mg/dL (8.7-10.4); CARBON DIOXIDE 26 mEq/L (21-32); POTASSIUM 3.1 mEq/L (3.5-5.1); SODIUM 137 mEq/L (136-145)
[2024-08-29 13:45] LABS: CREATININE 2.3 mg/dL (0.6-1.3); GLUCOSE 69 mg/dL (70-105)
[2024-08-29 13:46] LABS: UREA NITROGEN BLOOD 20 mg/dL (9-23)
[2024-08-29 13:48] LABS: PHOSPHORUS 2.9 mg/dL (2.5-4.9)
[2024-08-29 16:00] VITALS: BP 148/72; PULSE 90; RESP 19; TEMP 36.8; O2SAT 100
[2024-08-29] MEDS: POTASSIUM CHLORIDE 20MEQ TABLET SR PO NR (17:41)
[2024-08-29 20:00] VITALS: BP 147/73; PULSE 80; RESP 19; TEMP 36.5; O2SAT 94
[2024-08-29 21:18] LABS: ANISOCYTOSIS 1+; PLATELET ESTIMATE INCREASED
[2024-08-30] VITALS: BP 138/78; PULSE 78; RESP 19; TEMP 37.1; O2SAT 95
[2024-08-30 04:00] VITALS: BP 138/76; PULSE 74; RESP 19; TEMP 36.6; O2SAT 95
[2024-08-30 08:00] VITALS: BP 170/78; PULSE 83; RESP 14; TEMP 36.3; O2SAT 96
[2024-08-30 12:00] VITALS: BP 137/77; PULSE 87; RESP 14; TEMP 36.3; O2SAT 96
[2024-08-30] MEDS: VANCOMYCIN 1.25GM PMX (XELLIA) 250 ML IV SCH (13:00)
== END 2024-08-30 20:18 | disposition home health service (06) | DRG 871 ==
LOC: ER 09:21 → MICUSO 12:34 → EDBEDREQTM 12:37 → EDBEDREQSVC 12:37 → EDBEDREQ 12:37 → EDBEDREQSVC 22:14 → 5EST 08-18 10:28 → 7EST 08-18 18:42 → 4WST 08-30 18:29 → 7EST 08-30 18:30
PROVIDERS: ADMIT Internal Medicine; ATTEND Internal Medicine
PROC: 30233N1 Transfusion of Nonautologous Red Blood Cells into Peripheral Vein, Percutaneous Approach (ICD-10-PCS; principal; 2024-08-16)
PROC: 5A1D70Z Performance of Urinary Filtration, Intermittent, Less than 6 Hours Per Day (ICD-10-PCS; 2024-08-17)
PROC: 5A09357 Assistance with Respiratory Ventilation, Less than 24 Consecutive Hours, Continuous Positive Airway Pressure (ICD-10-PCS; 2024-08-17)
PROC: 05HM33Z Insertion of Infusion Device into Right Internal Jugular Vein, Percutaneous Approach (ICD-10-PCS; 2024-08-17)
PROC: B543ZZA Ultrasonography of Right Jugular Veins, Guidance (ICD-10-PCS; 2024-08-17)
PROC: 5A09357 Assistance with Respiratory Ventilation, Less than 24 Consecutive Hours, Continuous Positive Airway Pressure (ICD-10-PCS; 2024-08-18)
PROC: 5A1D70Z Performance of Urinary Filtration, Intermittent, Less than 6 Hours Per Day (ICD-10-PCS; 2024-08-18)
PROC: 5A1D70Z Performance of Urinary Filtration, Intermittent, Less than 6 Hours Per Day (ICD-10-PCS; 2024-08-18)
PROC: 5A1D70Z Performance of Urinary Filtration, Intermittent, Less than 6 Hours Per Day (ICD-10-PCS; 2024-08-21)
DX: A41.9 Sepsis, unspecified organism (principal); G93.41 Metabolic encephalopathy; J96.01 Acute respiratory failure with hypoxia; R65.21 Severe sepsis with septic shock; I21.A1 Myocardial infarction type 2; N17.0 Acute kidney failure with tubular necrosis; E87.20 Acidosis, unspecified; L03.115 Cellulitis of right lower limb; L97.319 Non-pressure chronic ulcer of right ankle with unspecified severity; M86.8X7 Other osteomyelitis, ankle and foot; E11.22 Type 2 diabetes mellitus with diabetic chronic kidney disease; D64.9 Anemia, unspecified; E11.51 Type 2 diabetes mellitus with diabetic peripheral angiopathy without gangrene; E11.621 Type 2 diabetes mellitus with foot ulcer; E11.65 Type 2 diabetes mellitus with hyperglycemia; E11.69 Type 2 diabetes mellitus with other specified complication; E78.5 Hyperlipidemia, unspecified; I12.9 Hypertensive chronic kidney disease with stage 1 through stage 4 chronic kidney disease, or unspecified chronic kidney disease; I44.0 Atrioventricular block, first degree; L97.519 Non-pressure chronic ulcer of other part of right foot with unspecified severity; N18.30 Chronic kidney disease, stage 3 unspecified; B95.2 Enterococcus as the cause of diseases classified elsewhere; E86.1 Hypovolemia; M85.80 Other specified disorders of bone density and structure, unspecified site; E11.628 Type 2 diabetes mellitus with other skin complications; R68.0 Hypothermia, not associated with low environmental temperature; Z79.4 Long term (current) use of insulin; Z82.49 Family history of ischemic heart disease and other diseases of the circulatory system; Z83.3 Family history of diabetes mellitus; Z79.899 Other long term (current) drug therapy
CPT/HCPCS: 36415; 36556; 36600; 71045; 73620; 73700; 76770; 76937; 80048; 80053; 80061; 80076; 80202; 80320; 81003; 82375; 82550; 82553; 82805; 82962; 83036; 83605; 83615; 83735; 83880; 84100; 84145; 84484; 85014; 85018; 85025; 85651; 86705; 86709; 86850; 86900; 86920; 87070; 87340; 90935; 93005; 93306; 93923; 93971; 94070; 94660; 97110; 97162; 97166; 97530; 97535; 99291; C1752; C1893; J0360; J0692; J0885; J1815; J1940; J2003; J2470; J2543; J3370; J3475; J3480; J3490; J7030; P9016; G0480